=== PATIENT | male | born 1940 ===

== ENCOUNTER 2020-12-31 10:45 | Inpatient (IN) | payer OTHER ==
[~2020-12-31] VITALS: Ht 160 cm; Wt 71.2 kg
[2021-02-22] MEDS ORDERED: FINASTERIDE5 MG PO (14:52)
[2021-02-22] MEDS ORDERED: TAMS0.4C PO (14:52)
[2021-02-22] MEDS ORDERED: CHILDREN'S ASPI81 MG PO (14:53)
[2021-02-22] MEDS ORDERED: JANUMET XR 50-1 EACH PO (14:53)
[2021-02-22] MEDS ORDERED: OMEGA-31000 MG PO (14:53)
[2021-02-22] MEDS ORDERED: ZOLOFT25 MG PO (14:53)
[2021-02-22] MEDS ORDERED: CLARITIN10 M1 PO (14:54)
[2021-02-22] MEDS ORDERED: ALENDRONATE SOD70 MG PO (14:54)
[2021-03-01] MEDS ORDERED: DIAZEPAM5 MG PO (07:29)
[2021-03-01] MEDS ORDERED: PERCOCET 5-3251 EACH PO (07:29)
[2021-03-01] MEDS ORDERED: MEDROLPACK PO (07:29)
[2021-03-01] MEDS ORDERED: COLACE100 MG PO (07:29)
== END 2021-03-02 22:55 | DRG 473 ==
LOC: O/R 03-01 05:10 → SURH 03-01 10:00 → O/R 03-01 11:50 → PED 03-01 16:11 → SURH 03-01 18:00
PROVIDERS: ADMIT Orthopaedic Surgery Orthopaedic Surgery of the Spine; ATTEND Orthopaedic Surgery Orthopaedic Surgery of the Spine
PROC: 07DS3ZZ Extraction of Vertebral Bone Marrow, Percutaneous Approach (ICD-10-PCS; 2021-03-01)
PROC: XRG20F3 Fusion of 2 or more Cervical Vertebral Joints using Radiolucent Porous Interbody Fusion Device, Open Approach, New Technology Group 3 (ICD-10-PCS; principal; 2021-03-01 10:00)
DX: M50.01 Cervical disc disorder with myelopathy, high cervical region (principal); M48.02 Spinal stenosis, cervical region; I10 Essential (primary) hypertension; E11.9 Type 2 diabetes mellitus without complications; Z79.84 Long term (current) use of oral hypoglycemic drugs